=== PATIENT | female | born 2000 | race African-American/Black ===

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

== ENCOUNTER 2020-01-30 18:10 | Emergency (ER) | payer MEDICAID ==
[2020-01-30 18:57] VITALS: BP 107/64
== END 2020-01-31 04:28 | disposition left against medical advice (07) ==
LOC: ER 18:10
DX: Z53.21 Procedure and treatment not carried out due to patient leaving prior to being seen by health care provider (principal)